=== PATIENT | female | born 1965 | race Caucasian/White ===

== ENCOUNTER 2017-06-20 11:36 | Emergency (ER) | payer OTHER ==
[2017-06-20 11:50] VITALS: TEMP 98.2
--- NOTE | 2017-06-20 13:00 | EDPHY ---
H & P Time Seen by Provider: 06/20/17 12:05 HPI/ROS: CHIEF COMPLAINT: Left knee injury HISTORY OF PRESENT ILLNESS: 52-year-old female presents to the emergency department with injury to the left knee. The patient was skiing yesterday around 3:00 p.m. And somehow twisted and fell injuring her left knee. She is having pain and swelling in the left knee especially with range of motion. Denies any other trauma or injury. Did not hit her head or lose consciousness. ROS: Denies numbness or tingling a in her left foot, feelings of weakness in her left lower leg. Denies hitting her head or losing consciousness. Past Medical/Surgical History: Meniere's disease, cyclical vomiting syndrome Social History: and lives in [place] Smoking Status: Never smoked Physical Exam: On examination, there is no bruising or abrasions noted. She does have a large joint effusion noted especially in the suprapatellar region. She has limited flexion and is unable to fully extend her left knee secondary to pain. She has reproducible pain with palpation mostly in the lateral joint line as well as in the lateral aspect of the left knee. No palpable crepitus or other bony abnormality. Patellar apprehension sign is negative. Calf is nontender. Achilles tendon is intact. Normal sensation to light touch with normal 2 point discrimination. Strong dorsalis pedis pulse on the dorsal aspect of her left foot. Constitutional: Initial Vital Signs Temperature (C) 36.8 C 06/20/17 11:40 Heart Rate 84 06/20/17 11:40 Respiratory Rate 18 06/20/17 11:40 Blood Pressure 115/77 06/20/17 11:40 O2 Sat (%) 97 06/20/17 11:40 O2 Delivery Mode Room Air Allergies/Adverse Reactions: ibuprofen Allergy (Mild, Verified 06/20/17 11:51) GI upset Home Medications: Medication Instructions Recorded LORAZEPAM 1 mg PO DAILY PRN 02/10/16 Ondansetron Odt [Zofran Odt 4 mg 4 mg PO Q4 PRN #10 tab 02/12/16 (RX)] traMADol [Ultram 50 mg (*)] 50 mg PO Q6 PRN #10 tab 06/20/17 MDM/Departure - MDM Imaging Results: Imaging Impressions Knee X-Ray 06/20/17 12:01 Impression: Large joint effusion with no visible acute osseous findings. If symptoms persist and clinical suspicion warrants, consider MRI. 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 Medications Given: Discontinued Medications Tramadol HCl (Ultram) 50 mg PO EDNOW ONE Stop: 06/20/17 13:24 Last Admin: 06/20/17 13:29 Dose: 50 mg ED Course/Re-evaluation: 52-year-old female presents to the emergency department with left knee injury. X-rays reveal no fractures. She has large joint effusion. She understands she likely has internal derangement of the knee and will need follow up with orthopedic surgery for likely outpatient MRI of her left knee. She was placed in a straight leg knee immobilizer and given orthopedic referral. - Depart Disposition: Home, Routine, Self-Care Clinical Impression: Left knee sprain Qualifiers: Encounter type: initial encounter Involved ligament of knee: unspecified ligament Qualified Code(s): S83.92XA - Sprain of unspecified site of left knee, initial encounter Condition: Good Instructions: Knee Sprain (ED) Additional Instructions: Knee immobilizer for comfort and support. Crutches, nonweight bearing. Tramadol for severe pain as directed. Return if you develop increasing pain or if you feel worse in any way. Prescriptions: traMADol [Ultram 50 mg (*)] 50 mg PO Q6 PRN #10 tab PRN Reason: P.r.n. Pain Referrals: Mj Zuluaga MD [Medical Doctor] - 2-3 days without fail ([facility] orthopedic surgeon )
[2017-06-20] MEDS ORDERED: traMADol 50 MG TAB ONE (13:21)
[2017-06-20] MEDS ORDERED: traMADol 50 MG TAB PO ONE (13:23)
[2017-06-20 13:35] VITALS: BP 105/66; PULSE 64; RESP 16; O2SAT 94
== END 2017-06-20 13:33 | disposition home or self-care (01) ==
DX: S83.92XA Sprain of unspecified site of left knee, initial encounter (principal); V00.321A Fall from snow-skis, initial encounter; Y99.8 Other external cause status; Y93.23 Activity, snow (alpine) (downhill) skiing, snowboarding, sledding, tobogganing and snow tubing
CPT/HCPCS: L1830

== ENCOUNTER 2017-08-06 11:13 | Emergency (ER) | payer OTHER ==
[2017-08-06 11:21] VITALS: BP 128/79
--- NOTE | 2017-08-06 11:34 | EDPHY ---
General Time Seen by Provider: 08/06/17 11:26 Narrative: CHIEF COMPLAINT: Ft pain, concern for DVT HISTORY OF PRESENT ILLNESS: Patient presents with complaint of DVT in the left leg because of left foot swelling. This happened over the past 24 hr. Moderately painful. No fever. No calf pain. Minimal pain left groin. She is postop day 3 from a left ACL repair with Drs. Ma and Ganga. Uncomplicated with improving left knee pain. She has adhere to their postop recommendations. She has taken 81 mg aspirin daily. No trauma or injury. No no bleeding disorders. No previous venous thrombolic event. No chest pain or shortness of breath. She contacted their office they recommended she come to the emergency department to rule out DVT. No other associated complaints or modifying factors. REVIEW OF SYSTEMS: Ten systems reviewed and are negative unless otherwise noted in the HPI SPECIALISTS: Dr. Ma, Ortho Dr. Schuler, Ortho PAST MEDICAL HISTORY: Uncomplicated PAST SURGICAL HISTORY: Left ACL repair on Thursday SOCIAL HISTORY: Nonsmoker. Lives and works Here independently with her spouse FAMILY HISTORY: noncontributory EXAMINATION General Appearance: Alert, no distress Head: normocephalic, atraumatic Neck: Normal inspection, supple, non-tender Respiratory: Lungs are clear to auscultation. No wheeze, rhonchi or crackles Cardiovascular: Regular rate and rhythm. No murmur. Symmetric radial pulses 2 +. Symmetric DP pulses 2+. Neurological: A&O, nonfocal, sensory symmetric in the dorsum of the feet and plantar surface of the feet. Symmetric strength of the great toes. Skin: Warm and dry, no rash. There are surgical incisions to the left knee that are clean, dry and intact. No dehiscence. No signs of infection Extremities: Moderate left lower extremity edema surrounding the knee. Minimal calf or pedal edema. Range of motion of the ankles intact. No pain with passive dorsiflexion of the ankle. Psychiatric: Mood and affect normal DIFFERENTIAL DIAGNOSES: Including but not limited to DVT, postoperative swelling, edema MDM: 11:30 a.m. Pain and swelling of the left foot postop day 3 from left ACL repair. Her incisions are clean, dry and intact. The foot is minimally swollen by my appreciation. She does have pain only in the foot and distal ankle. No pain in the calf. No bleeding disorders or previous venous thrombolic event. Given her recent surgery or concern, we have ordered ultrasound of the lower extremity for possible DVT. Ultrasound is currently at bedside. 12:05 p.m. Notified by radiologist Dr. Jones. Negative DVT study of the left lower extremity. 12:10 p.m. Patient re-evaluated. I informed her of the negative DVT study. We discussed postoperative pain and swelling. We discussed contacting the surgeon for outpatient follow-up. We discussed ED precautions for any worsening pain, swelling, redness. She is comfortable this plan and discharged home stable condition. SUPERVISION: This patient was independently evaluated without direct involvement of or examination by the attending physician. - Diagnostics Imaging Results: Imaging Impressions Extremity Venous Study 08/06/17 11:18 Impression: No sonographic evidence of DVT in the left lower extremity. Dr. Jones discussed these findings by telephone with Gal Anaya on 2017 at 1204 hours. - History Smoking Status: Never smoked - Objective Vital Signs: Initial Vital Signs Temperature (C) 97.3 F 08/06/17 11:18 Heart Rate 70 08/06/17 11:18 Respiratory Rate 16 08/06/17 11:18 Blood Pressure 128/79 H 08/06/17 11:18 O2 Sat (%) 98 08/06/17 11:18 O2 Delivery Mode Room Air Allergies/Adverse Reactions: ibuprofen Allergy (Mild, Verified 08/06/17 11:18) GI upset Home Medications: Medication Instructions Recorded LORAZEPAM 1 mg PO DAILY PRN 02/10/16 Ondansetron Odt [Zofran Odt 4 mg 4 mg PO Q4 PRN #10 tab 02/12/16 (RX)] traMADol [Ultram 50 mg (*)] 50 mg PO Q6 PRN #10 tab 06/20/17 Aspirin 81mg (*) 08/06/17 Oxycodone HCl 08/06/17 Departure - Departure Disposition: Home, Routine, Self-Care Clinical Impression: Postoperative edema, Postoperative pain of left knee Condition: Good Instructions: Operative Knee Arthroscopy (DC) Additional Instructions: 1. Continue your previous instructions From orthopedic surgeon 2. Contact your orthopedic surgeon for outpatient follow-up 3. ED precautions for increasing pain, swelling, redness, fever Referrals: Shant Noel MD [Primary Care Provider] - As per Instructions
== END 2017-08-06 12:23 | disposition home or self-care (01) ==
DX: G89.18 Other acute postprocedural pain (principal); T81.89XA Other complications of procedures, not elsewhere classified, initial encounter; R60.0 Localized edema; Y82.8 Other medical devices associated with adverse incidents

== ENCOUNTER 2017-08-20 01:21 | Emergency (ER) | payer OTHER ==
[2017-08-20] MEDS ORDERED: HALOPERIDOL LACT 5 MG/ML INJ IVP ONE (02:28)
[2017-08-20] MEDS ORDERED: NS 1,000 ML IV ONE ×2 (02:28→02:32)
--- NOTE | 2017-08-20 02:28 | EDPHY ---
H & P Stated Complaint: VOMITING AND DIARRHEA X 2 DAYS/HX MENIERES DX Time Seen by Provider: 08/20/17 02:20 HPI/ROS: Chief Complaint: Abdominal pain, nausea, vomiting, Meniere's disease HPI: 52-year-old woman with a history of Meniere's disease and cyclic vomiting syndrome is presenting with 3 days of nausea and vomiting and upper abdominal pain similar to her prior presentations. She has been unable to keep anything down. Symptoms feel similar to her prior episodes. She has had some increasing ringing in her ears recently as well. No fevers or chills. Some occasional diarrhea. No coffee grounds or blood in her vomit. No dark tarry stools or blood in her diarrhea. No chest pain or shortness of breath. She is mildly dizzy but no vertiginous symptoms. ROS: 10 point Review of Systems is negative except as noted in the HPI. PMH: Cyclic vomiting syndrome, Meniere's disease Social History: No smoking, no alcohol, no recreational drug use Family History: non-contributory Physical Exam: Gen: Awake, Alert, uncomfortable appearing HEENT: Nose: no rhinorrhea Eyes: PERRLA, EOMI Mouth: Moist mucosa Neck: Supple, no JVD Chest: nontender, lungs clear to auscultation Heart: S1, S2 normal, no murmur Abd: Soft, non-tender, no guarding Back: no CVA tenderness, no midline tenderness Ext: no edema, non-tender Skin: no rash Neuro: CN II-XII intact, Sensation grossly intact, Strength 5/5 in bilateral upper and lower extremities - Personal History LMP (Females 10-55): Hysterectomy Current Tetanus Diphtheria and Acellular Pertussis (TDAP): Yes Tetanus Vaccine Date: < 10 YEARS - Medical/Surgical History Hx Asthma: No Hx Chronic Respiratory Disease: No Hx Diabetes: No Hx Cardiac Disease: No Hx Renal Disease: No Hx Cirrhosis: No Hx Alcoholism: No Hx HIV/AIDS: No Hx Splenectomy or Spleen Trauma: No Other PMH: CYCLIC VOMITING, HYSTERECTOMY. Menieres - Social History Smoking Status: Never smoked Constitutional: Initial Vital Signs Temperature (C) 36.8 C 08/20/17 01:39 Heart Rate 67 08/20/17 01:39 Respiratory Rate 18 08/20/17 01:39 Blood Pressure 142/69 H 08/20/17 01:39 O2 Sat (%) 98 08/20/17 01:39 O2 Delivery Mode Nasal Cannula O2 (L/minute) 2 Allergies/Adverse Reactions: ibuprofen Allergy (Mild, Verified 08/06/17 11:18) GI upset Home Medications: Medication Instructions Recorded Ativan 08/20/17 Phenergan 12.5mg tab 08/20/17 Zofran 08/20/17 Medical Decision Making ED Course/Re-evaluation: Patient is improved after 2 L of IV fluid and Haldol. She is now tolerating p. O.. Is ambulate without difficulty. Abdomen is soft and benign. Will discharge with follow-up as an outpatient. - Data Points Medications Given: Discontinued Medications Haloperidol Lactate (Haldol Injection) 5 mg IVP EDNOW ONE Stop: 08/20/17 02:29 Last Admin: 08/20/17 02:39 Dose: 5 mg Sodium Chloride (Ns) 1,000 mls @ 0 mls/hr IV ONCE ONE; Wide Open PRN Reason: Protocol Stop: 08/20/17 02:29 Last Admin: 08/20/17 02:38 Dose: 1,000 mls Sodium Chloride (Ns) 1,000 mls @ 0 mls/hr IV ONCE ONE PRN Reason: Wide Open Stop: 08/20/17 02:33 Last Admin: 08/20/17 02:39 Dose: 1,000 mls Departure - Departure Disposition: Home, Routine, Self-Care Clinical Impression: Nausea & vomiting Condition: Good Instructions: Acute Nausea and Vomiting (ED) Additional Instructions: Follow up with primary care physician in 2-3 days for further evaluation. Return to the emergency department for worsening pain, uncontrolled nausea vomiting, fevers, or any other concerns. Referrals: Shant Noel MD [Primary Care Provider] - As per Instructions
[2017-08-20 04:02] VITALS: BP 136/83
== END 2017-08-20 04:12 | disposition home or self-care (01) ==
DX: R11.2 Nausea with vomiting, unspecified (principal); E86.9 Volume depletion, unspecified; Z90.710 Acquired absence of both cervix and uterus
CPT/HCPCS: 96374; J1630

== ENCOUNTER → 2018-03-05 | Outpatient (CLI) | payer OTHER | LOC: FIMAGING 14:06 | PROVIDERS: ATTEND Internal Medicine | DX: Z12.31 Encounter for screening mammogram for malignant neoplasm of breast (principal); Z80.3 Family history of malignant neoplasm of breast ==